=== PATIENT | male | born 1980 | race African-American/Black ===

== ENCOUNTER 2020-11-27 13:29 | Emergency (ER) | payer OTHER ==
[2020-11-27] MEDS ORDERED: HYDROCODON-ACE1 EA10 PO (15:14)
== END 2020-11-27 13:54 | disposition home or self-care (01) ==
LOC: ED 13:29
DX: S93.401A Sprain of unspecified ligament of right ankle, initial encounter (principal); S40.211A Abrasion of right shoulder, initial encounter; S40.811A Abrasion of right upper arm, initial encounter; V29.9XXA Motorcycle rider (driver) (passenger) injured in unspecified traffic accident, initial encounter
CPT/HCPCS: 70450; 71260; 72125; 73610; 74177; 80053; 82150; 82550; 83690; 85025; 86850; 86900; 86901; 99284-25; J1170; Q9967